=== PATIENT | female | born 1935 | race Caucasian/White ===

== ENCOUNTER → 2018-12-16 | Outpatient (REF) | payer MEDICARE, OTHER ==
[~2018-12-16] MED LIST: ALENDRONATE70 MG PO; BABY ASPIRIN81 MG PO; CINNAMON500 M1 PO; FISH OIL1200 M1 PO; HYZAAR1 TA2 PO; SYNTHROID100 MCG PO; VIACTIV MULT PO
[2018-12-16 08:14] LABS: HEMATOCRIT 45.5 % (37.0-47.0); HEMOGLOBIN 15.4 g/dl (12.0-16.0); IMMATURE GRANULOCYTES 0.1 % (0.0-5.0); MEAN CELL VOLUME 90.6 fL CALC (80.0-100.0); MEAN CORPUSCULAR HGB 30.7 pG CALC (26.0-32.0); MEAN CORPUSCULAR HGB CONC 33.8 g/L CALC (32.0-36.0); RED BLOOD COUNT 5.02 mill/uL (4.20-5.60); RED CELL DISTRI WIDTH 12.7 % (11.5-15.5)
[2018-12-16 08:33] LABS: ALBUMIN 3.9 g/dL (3.2-5.0); ALKALINE PHOSPHATASE 54 u/l (38-126); ANION GAP 13 (6-22 (CALC)); BILIRUBIN, TOTAL 0.7 mg/dL (0.0-1.4); BUN 12 mg/dL (8-23); BUN/CREATININE RATIO 16 (12-20 (CALC)); CALCULATED LDLCHOLESTEROL 104 mg/dL (62-129 (CALC)); CARBON DIOXIDE 31 mmol/l (22-30); CHLORIDE 96 mmol/l (95-108); CHOLESTEROL HDL RATIO 2.8 (<4.4 (CALC)); CREATININE 0.7 mg/dL (0.5-1.0); GFR > 60 ML/MIN (>=60 (CALC)); GFR FOR AFR.AMER. > 60 ML/MIN (>=60 (CALC)); HDL CHOLESTEROL 70 mg/dL (>=40); POTASSIUM 4.2 mmol/l (3.5-5.1); SGOT/AST 23 u/l (9-36); SODIUM 135 mmol/l (137-146); TOTAL CHOLESTEROL 193 mg/dl (0-199); TOTAL PROTEIN 6.3 g/dL (6.3-8.2); TOTAL TRIGLYCERIDES 96 mg/dl (30-149); VLDL CHOLESTROL 19 mg/dl (0-48 (CALC))
[2018-12-16 08:59] LABS: TSH, 3RD GENERATION 2.22 uIU/mL (0.47 - 4.68)
== END | disposition home or self-care (01) ==
LOC: LAB 07:22
PROVIDERS: ATTEND Internal Medicine
DX: E03.9 Hypothyroidism, unspecified (principal); I10 Essential (primary) hypertension